=== PATIENT | female | born 1970 | race Caucasian/White ===

== ENCOUNTER 2020-06-24 11:02 | Outpatient (CLI) | payer OTHER | END 2020-06-24 11:03 | disposition home or self-care (01) | LOC: CSHMAMMO 11:02 | PROVIDERS: ATTEND Family Medicine | DX: Z12.31 Encounter for screening mammogram for malignant neoplasm of breast (principal) | CPT/HCPCS: 77063; 77067 ==

== ENCOUNTER → 2024-02-14 | Day surgery (SDC) | payer BC ==
[~2024-02-14] MED LIST: Gadobenate Dimeglumine 2 ML, Sodium Chloride 0.9% 250 ML 10 ML, Iopamidol 8 ML, Lidocai... FS SCH; Gadobenate Dimeglumine 529 MG/1 ML (5 ML SDV) ONE; Iopamidol 300 61% 50 ML VIAL (IV ROOM USE) FS ONE; Magnevist 469MG/ML 20 ML VIAL ONE; Sodium Bicarbonate 2.5 MEQ/5 ML SDV ONE
== END ==
LOC: CSHRAD 09:42
PROVIDERS: ATTEND Physician Assistant
PROC: BQ31YZZ Magnetic Resonance Imaging (MRI) of Left Hip using Other Contrast (ICD-10-PCS; principal; 2024-02-14)
DX: M70.62 Trochanteric bursitis, left hip (principal); Z88.0 Allergy status to penicillin; Z88.8 Allergy status to other drugs, medicaments and biological substances
CPT/HCPCS: 27093; 77002; A9577; J0171; J7050; Q9967